=== PATIENT | female | born 1935 | race Caucasian/White ===

== ENCOUNTER 2017-03-25 10:08 | Observation (INO) | payer MEDICARE, OTHER ==
[~2017-03-25] VITALS: Ht 157.5 cm; Wt 77.0 kg
[2017-03-25] MEDS ORDERED: CULT10CA4 PO (11:10)
[2017-03-25] MEDS ORDERED: OMEP20TA93 PO (11:10)
[2017-03-25] MEDS ORDERED: ALEN1TAB48 PO (11:10)
[2017-03-25] MEDS ORDERED: HYDR-3516 PO (11:10)
[2017-03-25] MEDS ORDERED: MILKSUS PO (11:10)
[2017-03-25] MEDS ORDERED: MELA5 PO (11:10)
[2017-03-25] MEDS ORDERED: CALC1TAB34 PO (11:10)
[2017-03-25] MEDS ORDERED: CLAR10CA3 PO (11:10)
[2017-03-25] MEDS ORDERED: SENN1TAB PO (11:10)
[2017-03-25] MEDS ORDERED: AMLO10TA2 PO (11:10)
[2017-03-25] MEDS ORDERED: DULC10SU3 RECTAL (11:10)
[2017-03-25] MEDS ORDERED: ZOFR4TAB PO (11:10)
[2017-03-25] MEDS ORDERED: CHLO2PAD TOPICAL (11:10)
[2017-03-25] MEDS ORDERED: VITA100064 PO (11:10)
[2017-03-25] MEDS ORDERED: POVIDONE IODINE 5% (ANTISEPSIS KIT) 4 APPLICATIONS EACH NARE PRN (11:45)
[2017-03-25] MEDS ORDERED: POVIDONE IODINE 7.5% SCRUB 118 ML BOTTLE TOPICAL SCH (11:45)
[2017-03-25] MEDS ORDERED: INSULIN HUMAN REGULAR 1,000 UNITS/10 ML VIAL SQ PRN (11:45)
[2017-03-25] MEDS ORDERED: SODIUM CHLORID 0.9% 500 ML IV PRN (11:45)
[2017-03-25] MEDS ORDERED: METOPROLOL TARTRATE 25 MG TAB PO PRN (11:45)
[2017-03-25] MEDS ORDERED: LACTATED RINGER'S 1000 ML IV PRN (11:45)
[2017-03-25] MEDS ORDERED: ceFAZolin 2 GM PREMIX 50 ML IV SCH (11:45)
[2017-03-25] MEDS ORDERED: CHLORHEXIDINE GLUCONATE 2 % 1 PACK (2 CLOTHS) TOPICAL PRN (11:45)
[2017-03-25] MEDS ORDERED: MORPHINE SULFATE 4 MG/ML INJ IV ONE (12:00)
[2017-03-25] MEDS ORDERED: ONDANSETRON HCL 4 MG/2 ML VIAL IV ONE (12:00)
[2017-03-25] MEDS ORDERED: ROCURONIUM INJ 50 MG/5 ML SYRINGE IV PUSH ONE (12:00)
[2017-03-25] MEDS ORDERED: LIDOCAINE HCL 1% PF 5 ML SYRINGE OTHER ONE (12:00)
[2017-03-25] MEDS ORDERED: NEOSTIGMINE 5 MG/5 ML SYRINGE IV PUSH ONE (12:00)
[2017-03-25] MEDS ORDERED: DEXAMETHASONE SOD PHOS 4 MG/ML VIAL IV ONE (12:00)
[2017-03-25] MEDS ORDERED: GLYCOPYRROLATE 1 MG/5 ML SYRINGE IV PUSH ONE (12:00)
[2017-03-25] MEDS ORDERED: PROPOFOL 200 MG/20 ML AMP IV ONE (12:00)
--- NOTE | 2017-03-25 14:44 | EKG ---
Date Performed: 03/25/2017 Time Performed: 11:06:46 PTAGE: 81 years EKG: Sinus rhythm NORMAL ECG NO PREVIOUS TRACING DOCTOR: Lior Steward Interpretating Date/Time 03/25/2017 14:42:46
[2017-03-25] MEDS ORDERED: ACETAMINOPHEN 1000 MG/100 ML 100 ML IV ONE (16:11)
[2017-03-25] MEDS ORDERED: GENTAMICIN SULFATE 80 MG/2 ML VIAL ONE (16:15)
[2017-03-25] MEDS ORDERED: HYDR-3288 PO (16:39)
[2017-03-25] MEDS ORDERED: ENOX30P SQ (16:40)
[2017-03-25] MEDS ORDERED: ASPI81CH6 CHEW (16:40)
[2017-03-25] MEDS ORDERED: Post-op Orders (for Pharmacy) XX ONE (16:45)
[2017-03-25] MEDS ORDERED: diphenhydrAMINE HCL 25 MG CAP PO PRN (16:45)
[2017-03-25] MEDS ORDERED: ACETAMINOPHEN/HYDROcodone 325 MG/7.5 MG TAB PO PRN (16:45)
[2017-03-25] MEDS ORDERED: ONDANSETRON HCL 4 MG/2 ML VIAL IVP PRN (16:45)
[2017-03-25] MEDS ORDERED: MISCELLANEOUS PHARMACY INFORMATION XX ONE (16:45)
[2017-03-25] MEDS ORDERED: MISCELLANEOUS NURSING INFORMATION XX PRN (16:45)
[2017-03-25] MEDS ORDERED: MAGNESIUM HYDROXIDE SUSP 30 ML CUP PO PRN (16:45)
[2017-03-25] MEDS ORDERED: MORPHINE SULFATE 4 MG/ML INJ IV PUSH PRN (16:45)
--- NOTE | 2017-03-25 19:05 | RADRPT ---
EXAM DATE/TIME: 03/25/2017 18:05 [place] COMPARISON: No previous studies available for comparison. INDICATIONS : ORIF left tibia. MEDICAL HISTORY : Unobtainable. SURGICAL HISTORY : Unobtainable. ENCOUNTER: Initial ACUITY: 1 day PAIN SCORE: Non-responsive. LOCATION: Left tibia. FINDINGS: There is plate and screw fixation of the distal femur and ajay fixation of the tibia across a spiral f racture distal tibial shaft. Fibular fracture also present. CONCLUSION: 1. Ajay and screw fixation across spiral fracture of distal tibia. Jett Daly MD on March 25, 2017 at 19:01 Board Certified Radiologist. This report was verified electronically.
[2017-03-25] MEDS ORDERED: *morphine SULFATE 8 MG/ML PERIprocedure ONLY ONE (19:19)
[2017-03-25] MEDS: DEXT 5%-NACL 0.45% 1000 ML INJ 1,000 ML IV SCH (19:20)
[2017-03-25] MEDS ORDERED: DO NOT ADM ANY ANTICOAGULANT DRUGS PRN (20:00)
[2017-03-25 20:24] VITALS: BP 156/71; PULSE 78; RESP 16; TEMP 96.7; O2SAT 92
[2017-03-25] MEDS: DOCUSATE SODIUM 50 MG/SENNA 8.6 MG TAB PO SCH (21:00)
[2017-03-25] MEDS ORDERED: MELATONIN 5 MG TAB PO SCH (21:00)
[2017-03-26 00:24] VITALS: BP 132/60; PULSE 81; RESP 17; TEMP 96.4; O2SAT 94
[2017-03-26] MEDS: DEXT 5%-NACL 0.45% 1000 ML INJ 1,000 ML IV SCH (02:35)
[2017-03-26 04:53] VITALS: BP 144/66; PULSE 77; RESP 18; TEMP 97.8; O2SAT 100
[2017-03-26] MEDS: DOCUSATE SODIUM 50 MG/SENNA 8.6 MG TAB PO SCH (07:32)
[2017-03-26 07:43] LABS: HEMATOCRIT 26.4 % (35.0-46.0); MEAN CELL VOLUME 94.3 FL (80.0-100.0); MEAN CORPUSCULAR HEMOGLOBIN 31.1 PG (27.0-34.0); PLATELET COUNT 398 TH/MM3 (150-450); REVIEW FLAG FINAL; WHITE BLOOD COUNT 10.6 TH/MM3 (4.0-11.0)
[2017-03-26 08:00] VITALS: BP 118/57; PULSE 86; RESP 17; TEMP 97.5; O2SAT 97
--- NOTE | 2017-03-26 08:31 | PD.ORT.PN ---
Subjective Post Op Day #: 1 Subjective Remarks pain much improved. ready to go back to snf. Objective Vitals Vital Signs Date Time Temp Pulse Resp B/P (MAP) Pulse Ox O2 Delivery O2 Flow Rate FiO2 03/26/17 08:00 97.5 86 17 118/57 (77) 97 03/26/17 04:53 97.8 77 18 144/66 (92) 100 03/26/17 03:57 100 1.00 03/26/17 01:47 92 2.00 03/26/17 00:24 96.4 81 17 132/60 (84) 94 03/25/17 20:24 96.7 78 16 156/71 (99) 92 03/25/17 19:40 80 14 138/63 (88) 100 Nasal Cannula 2 03/25/17 19:30 76 14 142/65 (90) 100 Nasal Cannula 2 03/25/17 19:15 80 14 165/72 (103) 100 Nasal Cannula 2 03/25/17 19:04 97.6 85 14 129/78 (95) 100 Nasal Cannula 2 I/O 03/25/17 03/25/17 03/25/17 03/26/17 03/26/17 03/26/17 07:00 15:00 23:00 07:00 15:00 23:00 Intake Total 900 ml 480 ml Output Total 200 ml 400 ml Balance 700 ml 80 ml Intake Oral 480 ml Other 900 ml Output Urine Total 400 ml Estimated Blood Loss 200 ml # Voids 3 Result Diagram: 03/26/17 0718 Objective Remarks in bed, nad dressing and splint c/d/i cap refill sensation limited, chronic Assessment & Plan Ortho Post Op Day #: 1 Problem List: Assessment and Plan s/p L IM Tibial Nail NWB LLE maintain splint. daily dressing changes of incision/dressing at knee lovenox ok to d/c back to snf f/up dr. rivera next week Hawk Lubin Mar 26, 2017 08:31
--- NOTE | 2017-03-26 08:33 | HHI.DCPOC ---
Discharge Care Plan Diagnosis: (1) Tibia/fibula fracture, shaft Your Health Problems Are: Difficulty with ADL Goals to Promote Your Health * To prevent worsening of your condition and complications * To maintain your health at the optimal level Directions to Meet Your Goals Take your medications as prescribed Follow your dietary instruction Follow activity as directed Keep your appointments as scheduled Take your immunizations and boosters as scheduled If your symptoms worsen call your PCP, if no PCP go to Urgent Care Center or Emergency Room Smoking is Dangerous to Your Health. Avoid second hand smoke Call the 24-hour hour crisis hotline for domestic abuse at Hawk Lubin Mar 26, 2017 08:33
--- NOTE | 2017-03-26 08:40 | MP ---
cc: ROMEO CURRIE M.D. DATE OF SURGERY 03/25/2017 PREOPERATIVE DIAGNOSIS Left tibia-fibula shaft fracture. POSTOPERATIVE DIAGNOSES Left tibia-fibula shaft fracture. PROCEDURE Open reduction, internal fixation with intramedullary nailing left tibia fracture. SURGEON Dr. Romeo Currie DIRECTOR OF EMPLOYER SERVICES Waldemar Lubin PA-C ANESTHESIA General. ESTIMATED BLOOD LOSS 200 cc. TOURNIQUET TIME 0 minutes. COMPLICATIONS None. IMPLANTS USED Synthes 10 x 300-mm titanium tibial nail. JUSTIFICATION This patient is an 81-year-old female who had a traumatic fall and injury resulting in displaced fracture of her left tibia and fibula shaft. She was evaluated by the undersigned at the [facility] along with her son and also I spoke to her daughter who has power of pharmacy helper. We had a long, detailed discussion in regards to the diagnosis and specific details in regards to treatment options, including the option of nonoperative treatment versus surgery, surgery with open reduction, internal fixation with intramedullary nailing. The risks of surgery were discussed in detail which include but not limited to anesthesia, bleeding, infection, damage to nerves, blood vessels, pain, failure of hardware, blood clots, nonunion, malunion, pulmonary embolism and even . After a detailed discussion, due to the patient's severe pain and disability as related to her injury, the patient as well as the patient's family members did wish to proceed with surgical intervention as outlined above. PROCEDURE IN DETAIL Written consent and verbal consent were also obtained from the patient's son and the patient's daughter as power of pharmacy helper. The patient has been identified, taken to the operating room, placed supine on the operating room table. General anesthesia was administered as well as 2 grams of IV Ancef and 1 gram of IV vancomycin. The left lower extremity was then prepped and draped using as isopropyl alcohol, Hibiclens solution and DuraPrep solution. After a time-out was performed, a longitudinal incision was made over the superior aspect of the left knee. A mini-medial parapatellar arthrotomy was performed to allow for elevation and exposure of the proximal tibia. She had evidence of prior open reduction, internal fixation of the distal femur which caused scarring of the patellofemoral compartment and a somewhat more difficult exposure. Using the protection sleeve, a guidewire was used to gain entrance into the intramedullary canal of the tibia. Subsequently a cannulated reamer was then drilled and a long beaded tip guidewire placed in the intramedullary canal of the tibia and this did traverse the fracture. At this point a medial and lateral longitudinal incision was made over the region of the fracture. An open reduction was performed and a fracture reduction tenaculum clamp was used to assist with open reduction of the fracture. Once adequately reduced, sequential reaming began at size 8.5 and was carried to size 11. Subsequently a Synthes 10 x 300-mm titanium tibial nail was inserted over the guidewire into the intramedullary canal of the tibia. The proximal locking jig was used to place a lateral to medial transverse static locking screw was well as an oblique locking screw to the nail. The patient had incredibly severe osteoporosis of bone. Distally the fluoroscopic perfect [place] technique was used to place two lateral to medial transverse static locking screws and also an anterior-posterior distal locking screw. Fluoroscopic imaging again confirmed hardware placement and fracture reduction. The surgical wounds were thoroughly irrigated sterile with sterile saline solution. The arthrotomy incision was closed with #1 Vicryl suture, the subcutaneous layer with 2-0 Vicryl suture. Skin was closed with ari and 3-0 nylon suture. Sterile dressings were applied. The patient tolerated the procedure with no intraoperative complications noted. Waldemar Lubin, physician project administrative assistant certified, was present during the entire procedure to include patient positioning and the procedure itself. The medical necessity of a physician project administrative assistant was indicated in this case due to the complexity of the procedure itself. He assisted with appropriate manipulation of the leg. He assisted with both achieving and also maintaining open reduction of the fractures. He also assisted with implantation of the internal fixation device. Romeo Currie MD JWM/SSB /6:37 PM /8:15 AM
[2017-03-26] MEDS ORDERED: MULTIVITAMINS/MINERALS THERAPEUTIC TAB PO SCH (09:00)
[2017-03-26] MEDS: ACETAMINOPHEN/HYDROcodone 325 MG/7.5 MG TAB PO PRN ×2 (09:41→13:43)
--- NOTE | 2017-03-26 10:51 | PD.CONS ---
[facility] Reason for Consult Medical management Primary Care Physician No Primary Care Physician Diagnoses: History of Present Illness 81-year-old female with history of osteoporosis who underwent Open reduction, internal fixation with intramedullary nailing of left tibia fracture on 03/25/17 , is being seen in her room for further evaluation for which [facility] was consulted. Patient states she sustained left tibia-fibula shaft fracture as she was being stood up from a seating position by a FINGER WAVER at a local [facility] where she is currently a resident undergoing therapy. She denies any chest pain or shortness of breath and she reports well controlled pain Review of Systems Except as stated in HPI: all other systems reviewed are Neg Past Family Social History Allergies: Coded Allergies: No Known Allergies (Unverified , 03/25/17) Past Medical History CVA with right sided paralysis Osteoporosis Past Surgical History Open reduction, internal fixation with intramedullary nailing left tibia fracture 03/25/17 Previous hip surgery Previous left lower extremity surgery Reported Medications EMR Family History Noncontributory Social History Patient denies tobacco, alcohol or illicit drug intake Physical Exam Vital Signs Vital Signs Date Time Temp Pulse Resp B/P (MAP) Pulse Ox O2 Delivery O2 Flow Rate FiO2 03/26/17 08:00 97.5 86 17 118/57 (77) 97 03/26/17 04:53 97.8 77 18 144/66 (92) 100 03/26/17 03:57 100 1.00 03/26/17 01:47 92 2.00 03/26/17 00:24 96.4 81 17 132/60 (84) 94 03/25/17 20:24 96.7 78 16 156/71 (99) 92 03/25/17 19:40 80 14 138/63 (88) 100 Nasal Cannula 2 03/25/17 19:30 76 14 142/65 (90) 100 Nasal Cannula 2 03/25/17 19:15 80 14 165/72 (103) 100 Nasal Cannula 2 03/25/17 19:04 97.6 85 14 129/78 (95) 100 Nasal Cannula 2 Physical Exam GENERAL: This is a well-nourished, well-developed patient, in no apparent distress. SKIN: No rashes, ecchymoses or lesions. Cool and dry. HEAD: Atraumatic. Normocephalic. No temporal or scalp tenderness. EYES: Pupils equal round and reactive. Extraocular motions intact. No scleral icterus. No injection or drainage. ENT: Nose without bleeding, purulent drainage or septal hematoma. Throat without erythema, tonsillar hypertrophy or exudate. Uvula midline. Airway patent. NECK: Trachea midline. No JVD or lymphadenopathy. Supple, nontender, no meningeal signs. CARDIOVASCULAR: Regular rate and rhythm without murmurs, gallops, or rubs. RESPIRATORY: Clear to auscultation. Breath sounds equal bilaterally. No wheezes , rales, or rhonchi. GASTROINTESTINAL: Abdomen soft, non-tender, nondistended. No hepato-splenomegaly , or palpable masses. No guarding. MUSCULOSKELETAL: Extremities without clubbing, cyanosis, or edema.dressing over Left leg-Neurovascular intact NEUROLOGICAL: Awake and alert. Cranial nerves II through XII intact. Motor and sensory grossly within normal limits. Right UE weakness. Normal speech. Laboratory Laboratory Tests Test 03/26/17 07:18 White Blood Count 10.6 Red Blood Count 2.80 Hemoglobin 8.7 Hematocrit 26.4 Mean Corpuscular Volume 94.3 Mean Corpuscular Hemoglobin 31.1 Mean Corpuscular Hemoglobin Concent 33.0 Red Cell Distribution Width 14.0 Platelet Count 398 Mean Platelet Volume 7.8 Result Diagram: 03/26/17 0718 Imaging Last Impressions Tibia/Fibula X-Ray 03/25/17 0000 Signed Impressions: Service Date/Time: Saturday, March 25, 2017 18:05 - CONCLUSION: 1. Ajay and screw fixation across spiral fracture of distal tibia. Jett Daly MD Assessment and Plan Assessment and Plan 81-year-old female with Left tibia-fibula shaft fracture Open reduction, internal fixation with intramedullary nailing left tibia fracture Management per orthopedic surgery Pain management accordingly Nonweightbearing left lower extremity DVT prophylaxis with Lovenox Other chronic medical conditions Continue with current treatment DVT prophylaxis: Lovenox Thank you for this consultation Code Status Full code Discussed Condition With patient Junior Robles MD Mar 26, 2017 10:51
[2017-03-26 12:00] VITALS: BP 122/58; PULSE 90; RESP 17; TEMP 98.9; O2SAT 94
[2017-03-26] MEDS ORDERED: ENOXAPARIN SODIUM 30 MG/0.3 ML SYRINGE SQ SCH (18:00)
== END 2017-03-26 14:28 ==
LOC: HSDC 10:08 → EDSTATUS 15:30 → HSDI 16:38 → N07B 19:57
PROVIDERS: ADMIT Orthopaedic Surgery Sports Medicine; ATTEND Orthopaedic Surgery Sports Medicine
DX: S82.202A Unspecified fracture of shaft of left tibia, initial encounter for closed fracture (principal); S82.402A Unspecified fracture of shaft of left fibula, initial encounter for closed fracture; M81.0 Age-related osteoporosis without current pathological fracture; I10 Essential (primary) hypertension; G81.91 Hemiplegia, unspecified affecting right dominant side; W06.XXXA Fall from bed, initial encounter; Y93.89 Activity, other specified; Y92.092 Bedroom in other non-institutional residence as the place of occurrence of the external cause; Z01.810 Encounter for preprocedural cardiovascular examination
CPT/HCPCS: 01484; 27759; 73590; 76000; 85027; 86850; 86900; 86901; 93005; 96365; 97163; C1713; G0378; G8987; G8988; J0131; J0690; J1100; J1580; J2270; J2405; J2710; J3010; J7120